=== PATIENT | female | born 1990 | race Caucasian/White ===

== ENCOUNTER 2017-08-21 14:40 | Emergency (ER) | payer OTHER, SELFPAY ==
[2017-08-21 14:55] VITALS: BP 122/75; PULSE 95; RESP 20; TEMP 37.1; O2SAT 97; BMI 34.3
[2017-08-21 15:12] LABS: Microscopic, Urine URINE MICROSCOPIC (MICROSCOPIC)
[2017-08-21 15:15] LABS: Appearance,Urine TURBID (Clear); Basophils % 0.3 % (0.1-2.0); Bilirubin,Urine Negative (Negative); Blood, Urine TRACE-L (Negative); Color,Urine YELLOW (Yellow); Eosinophils # 0.2 K/mm3 (0.0-0.4); Eosinophils % 1.4 % (0.1-12.0); Glucose,Urine (UA) Negative (Negative); Hematocrit 42.8 % (37.0-47.0); Ketones,Urine Negative (Negative); Leukocyte Esterase,Urine 1+ (Negative); Lymphocytes # 2.7 K/mm3 (0.7-4.5); Lymphocytes % 18.4 K/mm3 (10-50); Mean Corpuscular HGB Conc 32.7 g/dL (31.8-35.4); Mean Corpuscular Volume 79.5 fl (81-99); Mean Platelet Volume 8.8 fl (7.4-10.4); Monocytes # 0.9 K/mm3 (0.1-1.0); Monocytes % 6.2 % (1.7-9.3); Neutrophils # 10.7 K/mm3 (1.8-7.8); Neutrophils % 73.7 % (37.0-80.0); Nitrate,Urine Negative (Negative); Platelet Count 275 K/mm3 (142-424); Protein,Urine Negative (Negative); Red Blood Count 5.39 M/mm3 (4.20-5.40); Red Cell Distribution Width 13.2 % (11.5-17.5); Specific Gravity, Urine 1.025 (1.005-1.030); Urobilinogen,Urine 0.2 EU/dl (0.2); White Blood Count 14.5 K/mm3 (4.8-10.8)
[2017-08-21 15:17] LABS: Urine Pregnancy, HCG Qual. Negative (Negative)
[2017-08-21 15:22] LABS: Alanine Aminotransferase 27 U/L (12-78); Albumin Level 3.6 gm/dL (3.4-5.0); Albumin/Globulin Ratio 0.9 (1.1-1.8); Alkaline Phosphatase 100 U/L (46-116); Amylase 49 U/L (25-125); Anion Gap 10.9 mEq/L (5-15); Aspartate Amino Transferase 9 U/L (15-37); Bilirubin,Total 0.4 mg/dL (0.2-1.0); Blood Urea Nitrogen 13 mg/dL (7-18); Calcium 8.5 mg/dL (8.5-10.1); Carbon Dioxide 28 mmol/L (21.0-32.0); Chloride 107 mmol/L (98-107); Creatinine Clearance Estimated 161 mL/min (0-300); Creatinine,Serum 0.76 mg/dL (0.55-1.02); Estimated Glomerular Filt Rate 92 ml/min (>60); GFR (African American) 111 ML/MIN (>60); Globulin 4.1 gm/dl (1.3-3.2); Glucose 106 mg/dL (74-106); Lipase 164 u/L (73-393); Potassium 3.9 mmoL/L (3.5-5.1); Sodium 142 mmol/L (136-145); Total Protein,Serum 7.7 gm/dL (6.4-8.2)
[2017-08-21 15:46] LABS: Bacteria,Urine 2+ /lpf; Mucus,Urine 1+ /lpf; Squamous Epithelial Cell,Urine 20-50 #/hpf (0-5)
--- NOTE | 2017-08-21 15:51 | [facility].EDUROGF ---
ED Disposition Clinical Impression: Bartholin's cyst Disposition: Home, Self-Care Condition on Discharge: Fair Instructions: DI for Acute Abdomen Additional Instructions: No sexual activity. Prescriptions: cephALEXin [cephALEXin 500mg capsule] 500 mg PO Q6H #28 cap - Critical Care Critical Care Time: No Attestation: On 08/21/17, the high probability of a clinically significant, sudden or life threatening deterioration of the following system(s) required my full and direct attention, intervention and personal management. The time I documented below is in addition to time spent performing reported procedures but includes the following listed in this critical care notation. Medical Decision Making - Medical Records Medical records reviewed: Yes: I reviewed the patient's medical records. Vital Signs: 08/21/17 14:55 Temperature 98.7 F Temperature Source Oral Pulse Rate [Right Radial] 95 H Respiratory Rate 20 Blood Pressure [Right Arm] 122/75 Blood Pressure Mean [Right Arm] 90 Blood Pressure Source [Right Arm] Automatic Cuff Blood Pressure Position [Right Arm] Sitting 02 Sat by Pulse Oximetry 97 Oxygen Delivery Method Room Air - Lab Data Lab Results 08/21/17 15:00: WBC 14.5 H, RBC 5.39, Hgb 14.0, Hct 42.8, MCV 79.5 L, MCH 26.0 L, MCHC 32.7, RDW 13.2, Plt Count 275, MPV 8.8, Neut % (Auto) 73.7, Lymph % (Auto) 18.4, [place] % (Auto) 6.2, Eos % (Auto) 1.4, Baso % (Auto) 0.3, Neut # (Auto) 10.7 H, Lymph # (Auto) 2.7, [place] # (Auto) 0.9, Eos # (Auto) 0.2, Baso # (Auto) 0.0 08/21/17 15:00: Urine Color Yellow, Urine Appearance Turbid, Urine pH 6.0, Ur Specific [place] 1.025, Urine Protein Negative, Urine Glucose (UA) Negative, Urine Ketones Negative, Urine Blood Trace-l, Urine Nitrate Negative, Urine Bilirubin Negative, Urine Urobilinogen 0.2, Ur Leukocyte Esterase 1+ A, Urine RBC 3-5, Urine WBC 3-5, Ur Squamous Epith Cells 20-50, Urine Bacteria 2+, Urine Mucus 1+ 08/21/17 15:00: Urine HCG, Qual Negative 08/21/17 15:00: Sodium 142, Potassium 3.9, Chloride 107, Carbon Dioxide 28, Anion Gap 10.9, BUN 13, Creatinine 0.76, Estimated Creat Clear 161, Estimated GFR 92, Est GFR ( Amer) 111, Glucose 106, Calcium 8.5, Total Bilirubin 0.4, AST 9 L, ALT 27, Alkaline Phosphatase 100, Total Protein 7.7, Albumin 3.6, Globulin 4.1 H, Albumin/Globulin Ratio 0.9 L, Amylase 49, Lipase 164 Result diagrams: 08/21/17 15:00 08/21/17 15:00 Orders (Tests/Meds): ORDERS Category Date Time Status Urine Culture Stat Micro 08/21/17 15:00 Received - Angel Inquiry Pt receiving controlled substance: No Angel was queried for this patient: No Medical Decision Making Narrative: I called Dr. Nunez who recommended Keflex 500 4 times daily, I scheduled the patient on August 28 at 8:45 AM. Female Urogenital HPI - General Chief complaint: Abdominal Pain Stated complaint: abd pain Mode of Arrival: Ambulatory Limitations: No Limitations Description of Symptoms (Recalled from ER Triage Doc. by RN): abd pain with pressure in her vaginal area. - History of Present Illness HPI Narrative: A 7 years old white female 3 para [address] Chadwick. She had her period 2 weeks ago used large size tampons. 3 days ago she developed a midline posterior vaginal wall cyst. He has no discharge. No fever nausea vomiting no dysuria or hematuria. He tried to call Dr. Chadwick but she was not able to get an appointment. Onset (ago): day(s) (3 days.) Severity: moderate Severity scale (1-10): 4 Quality: dull Duration: constant Relieving factors: none Exacerbating factors: other (Touching. ) Sexual activity: no : no - Related Data : 3 Para: 3 A: 0 Previous Rx's Medication Instructions Recorded cephALEXin [cephALEXin 500mg 500 mg PO Q6H #28 cap 08/21/17 capsule] Allergies Allergy/AdvReac Type Severity Reaction Status Date / Time Sulfa (Sulfonamide Allergy Intermediate I-HIVES Unverifie
--- NOTE | 2017-08-21 15:54 | ED_ITS ---
ED Disposition Clinical Impression: Bartholin's cyst Disposition: Home, Self-Care Condition on Discharge: Fair Instructions: DI for Acute Abdomen Additional Instructions: No sexual activity. Prescriptions: cephALEXin [cephALEXin 500mg capsule] 500 mg PO Q6H #28 cap - Critical Care Critical Care Time: No Attestation: On 08/21/17, the high probability of a clinically significant, sudden or life threatening deterioration of the following system(s) required my full and direct attention, intervention and personal management. The time I documented below is in addition to time spent performing reported procedures but includes the following listed in this critical care notation. Medical Decision Making - Medical Records Medical records reviewed: Yes: I reviewed the patient's medical records. Vital Signs: 08/21/17 14:55 Temperature 98.7 F Temperature Source Oral Pulse Rate [Right Radial] 95 H Respiratory Rate 20 Blood Pressure [Right Arm] 122/75 Blood Pressure Mean [Right Arm] 90 Blood Pressure Source [Right Arm] Automatic Cuff Blood Pressure Position [Right Arm] Sitting 02 Sat by Pulse Oximetry 97 Oxygen Delivery Method Room Air - Lab Data Lab Results 08/21/17 15:00: WBC 14.5 H, RBC 5.39, Hgb 14.0, Hct 42.8, MCV 79.5 L, MCH 26.0 L , MCHC 32.7, RDW 13.2, Plt Count 275, MPV 8.8, Neut % (Auto) 73.7, Lymph % (Auto ) 18.4, [place] % (Auto) 6.2, Eos % (Auto) 1.4, Baso % (Auto) 0.3, Neut # (Auto) 10.7 H, Lymph # (Auto) 2.7, [place] # (Auto) 0.9, Eos # (Auto) 0.2, Baso # (Auto) 0.0 08/21/17 15:00: Urine Color Yellow, Urine Appearance Turbid, Urine pH 6.0, Ur Specific [place] 1.025, Urine Protein Negative, Urine Glucose (UA) Negative, Urine Ketones Negative, Urine Blood Trace-l, Urine Nitrate Negative, Urine Bilirubin Negative, Urine Urobilinogen 0.2, Ur Leukocyte Esterase 1+ A, Urine RBC 3-5, Urine WBC 3-5, Ur Squamous Epith Cells 20-50, Urine Bacteria 2+, Urine Mucus 1+ 08/21/17 15:00: Urine HCG, Qual Negative 08/21/17 15:00: Sodium 142, Potassium 3.9, Chloride 107, Carbon Dioxide 28, Anion Gap 10.9, BUN 13, Creatinine 0.76, Estimated Creat Clear 161, Estimated GFR 92, Est GFR ( Amer) 111, Glucose 106, Calcium 8.5, Total Bilirubin 0.4, AST 9 L, ALT 27, Alkaline Phosphatase 100, Total Protein 7.7, Albumin 3.6, Globulin 4.1 H, Albumin/Globulin Ratio 0.9 L, Amylase 49, Lipase 164 Result diagrams: 08/21/17 15:00 08/21/17 15:00 Orders (Tests/Meds): ORDERS Category Date Time Status Urine Culture Stat Micro 08/21/17 15:00 Received - Angel Inquiry Pt receiving controlled substance: No Angel was queried for this patient: No Medical Decision Making Narrative: I called Dr. Nunez who recommended Keflex 500 4 times daily, I scheduled the patient on August 28 at 8:45 AM. Female Urogenital HPI - General Chief complaint: Abdominal Pain Stated complaint: abd pain Mode of Arrival: Ambulatory Limitations: No Limitations Description of Symptoms (Recalled from ER Triage Doc. by RN): abd pain with pressure in her vaginal area. - History of Present Illness HPI Narrative: A 7 years old white female 3 para [address] Chadwick. She had her period 2 weeks ago used large size tampons. 3 days ago she developed a midline posterior vaginal wall cyst. He has no discharge. No fever nausea vomiting no dysuria or hematuria. He tried to call Dr. Chadwick but she was not able to
== END 2017-08-21 16:16 | disposition home or self-care (01) ==
LOC: UTC 14:43 → ER 14:51
PROVIDERS: Emergency Provider Emergency Medicine
DX: N75.0 Cyst of Bartholin's gland (principal); N39.0 Urinary tract infection, site not specified
CPT/HCPCS: 80053; 81001; 81025; 82150; 83690; 85025; 87086; 99281